=== PATIENT | male | born 1990 | race Caucasian/White ===

== ENCOUNTER 2020-08-01 18:26 | Emergency (ER) | payer OTHER ==
[~2020-08-01] VITALS: Ht 175.3 cm; Wt 85.1 kg
[2020-08-01 20:25] LABS: BILIRUBIN,URINE NEG (NEG); CLARITY,URINE CLEAR; COLOR,URINE YELLOW; GLUCOSE,URINE NEG (NEG); NITRITE,URINE NEG (NEG); UROBILINOGEN,URINE 0.2 mg/dL (0.2 mg/dL)
[2020-08-01 20:28] LABS: BACTERIA,URINE MOD /HPF (0-FEW); RBC,URINE 20-40 /HPF (0-2); SQUAMOUS EPITHELIAL CELL,UR OCC /LPF
--- NOTE | 2020-08-01 20:29 | RAD ---
CLINICAL HISTORY: Reason: left sided testicular pain, no injury / Spl. Instructions: / History: COMPARISON: None available. TECHNIQUE: Ultrasound images of the scrotum was performed with suarez-scale and color doppler. FINDINGS: Right testicle measures 4.4 x 2.9 x 2.5 cm. Left testicle measures 4.2 x 2.8 x 2.2 cm. Testicular microlithiasis noted. Testicular vascularity is symmetric and within normal limits. The epididymis is normal in appearance bilaterally. There is no hydrocele or varicocele. IMPRESSION: 1. No evidence for torsion. 2. Findings of testicular microlithiasis. Electronically signed by: Jai Dent MD (08/01/2020 8:27 PM) [facility]
[2020-08-01 20:30] LABS: AMORPHOUS SEDIMENT,UR PRESENT /HPF
--- NOTE | 2020-08-01 20:49 | PHYS DOC ---
Past History Past Medical History: Arthritis Additional Past Surgical Histo: BILAT FASCIATOMY LEGS Alcohol Use: Rarely General Adult EDM: Chief Complaint: TESTICULAR PAIN OR INJURY HPI: HPI: Patient is a 30-year-old male who presents with left-sided testicular pain. Patient states "I was just sitting there when all of a sudden I started having pain in my left testicle that radiated up into my abdomen and back". Patient states "I feel like my left testicle is higher up and looks like there is broken blood vessels". Patient denies injury. Denies pain with urination, frequency, penile discharge, fevers. Patient reports pain is worse with movement. And improves with sitting still. Denies taking anything prior to arrival for pain. Review of Systems: Review of Systems: Constitutional: Denies fever or chills Eyes: Denies change in visual acuity HENT: Denies nasal congestion or sore throat Respiratory: Denies cough or shortness of breath Cardiovascular: Denies chest pain or edema GI: Reports left-sided abdominal pain, denies nausea, vomiting, bloody stools or diarrhea : Denies dysuria Musculoskeletal: Reports back pain Integument: Denies rash Neurologic: Denies headache, focal weakness or sensory changes Endocrine: Denies polyuria or polydipsia Lymphatic: Denies swollen glands Psychiatric: Denies depression or anxiety Allergies: Allergies: Allergies Coded Allergies Type Severity Reaction Last Updated Verified Penicillins Allergy Intermediate 08/01/20 Yes oseltamivir Allergy Intermediate 08/01/20 Yes Physical Exam: PE: Constitutional: Well developed, well nourished, no acute distress, non-toxic appearance. [] HENT: Normocephalic, atraumatic, bilateral external ears normal, oropharynx moist, no oral exudates, nose normal. [] Eyes: PERRLA, EOMI, conjunctiva normal, no discharge. [] Neck: Normal range of motion, no tenderness, supple, no stridor. [] Cardiovascular:Heart rate regular rhythm, no murmur [] Lungs & Thorax: Bilateral breath sounds clear to auscultation [] Abdomen: Bowel sounds normal, soft, no tenderness, no masses, no pulsatile masses. [] Skin: Warm, dry, no erythema, no rash. [] Back: No tenderness, no CVA tenderness. [] Extremities: No tenderness, no cyanosis, no clubbing, ROM intact, no edema. [] Neurologic: Alert and oriented X 3, normal motor function, normal sensory function, no focal deficits noted. [] Psychologic: Affect normal, judgement normal, mood normal. [] Current Patient Data: Labs: Laboratory Tests Test 08/01/20 19:13 Urine Collection Type Unknown Urine Color Yellow Urine Clarity Clear Urine pH 7.5 Urine Specific [place] 1.020 Urine Protein Neg (NEG-TRACE) Urine Glucose (UA) Neg mg/dL (NEG) Urine Ketones (Stick) Neg mg/dL (NEG) Urine Blood Mod (NEG) Urine Nitrite Neg (NEG) Urine Bilirubin Neg (NEG) Urine Urobilinogen Dipstick 0.2 mg/dL (0.2 mg/dL) Urine Leukocyte Esterase Neg (NEG) Urine RBC 20-40 /HPF (0-2) Urine WBC 1-4 /HPF (0-4) Urine Squamous Epithelial Cells Occ /LPF Urine Amorphous Sediment Present /HPF Urine Bacteria Mod /HPF (0-FEW) Vital Signs: Vital Signs Date Time Temp Pulse Resp B/P (MAP) Pulse Ox O2 Delivery O2 Flow Rate FiO2 08/01/20 20:31 81 18 141/68 (92) 98 Room Air 08/01/20 18:45 99.7 EKG: EKG: [] Radiology/Procedures: Radiology/Procedures: []CLINICAL HISTORY: Reason: left sided testicular pain, no injury / Spl. Instructions: / History: COMPARISON: None available. TECHNIQUE: Ultrasound images of the scrotum was performed with suarez-scale and color doppler. FINDINGS: Right testicle measures 4.4 x 2.9 x 2.5 cm. Left testicle measures 4.2 x 2.8 x 2.2 cm. Testicular microlithiasis noted. Testicular vascularity is symmetric and within normal limits. The epididymis is normal in appearance bilaterally. There is no hydrocele or varicocele. IMPRESSION: 1. No evidence for torsion. 2. Findings of testicular microlithiasis. Electronically signed by: Jai Dent MD (08/01/2020 8:27 PM) [facility] without contrast dated 08/01/2020. No comparison available. CLINICAL INDICATION: Left-sided pain. TECHNIQUE: Contiguous axial imaging the abdomen pelvis performed without the administration of IV or oral contrast. One or more of the following individualized dose reduction techniques were utilized for this examination: 1. Automated exposure control 2. Adjustment of the mA and/or kV according to patient size 3. Use of iterative reconstruction technique FINDINGS: Limited images of the lung bases are clear. Heart size is within normal limits. No pleural or pericardial effusion. Solid abdominal viscera not well evaluated in the absence of contrast material. No apparent attenuation abnormality of the liver or spleen. Pancreas, adrenal glands, gallbladder unremarkable. There is a 3 mm calcific stone at the left UPJ. Mild left-sided pelvocaliectasis. 2 mm stone at the lower pole left kidney. There are couple of punctate calcific stones at the lower pole right kidney. No right ureteral stone or right hydronephrosis. Unopacified GI tract normal in caliber and contour. No focal bowel wall thickening. No inflammatory stranding in the mesentery. Appendix normal in caliber. No ascites or lymphadenopathy. Abdominal aorta normal in caliber. Images of pelvis show nondistended urinary bladder. Prostate gland normal in size. No free fluid or pelvic lymphadenopathy. Bone windows show no acute findings. Multilevel spondylosis. IMPRESSION: 1. There is a 3 mm calcific stone at the left UPJ with mild obstructive uropathy. 2. Bilateral nephrolithiasis. Electronically signed by: Dusty Michel MD (08/01/2020 9:35 PM) [facility] Heart Score: C/O Chest Pain: No Risk Factors: Risk Factors: DM, Current or recent (<one month) smoker, HTN, HLP, family history of CAD, obesity. Risk Scores: Score 0 - 3: 2.5% MACE over next 6 weeks - Discharge Home Score 4 - 6: 20.3% MACE over next 6 weeks - Admit for Clinical Observation Score 7 - 10: 72.7% MACE over next 6 weeks - Early Invasive Strategies Course & Med Decision Making: Course & Med Decision Making Pertinent Labs and Imaging studies reviewed. (See chart for details) [] 30-year-old male who presents with left-sided testicular pain that radiated into abdomen and back. Pain is worse with standing. Patient denies taking anything for pain prior to arrival. Patient denies urinary symptoms. I ordered a testicular ultrasound to rule out torsion which was negative. Patient given Toradol for discomfort. Patient was denying needing any medication for nausea. CBC is unremarkable.UA was positive for RBCs. CT of abdomen and pelvis shows 3 mm calcific stone at the left UPJ with mild obstructive uropathy. Discussed CT results with patient. Patient given pain medication and Flomax prior to discharge. Patient given prescription for 5/325 hydrocodone, Flomax, Zofran. Explained to patient they will need to call urology in the morning to make a follow-up appointment. Patient states that they understand discharge instructions and will follow up with urology. Patient's pain is controlled at this time. Denying nausea. Dragon Disclaimer: Kristen Disclaimer: This electronic medical record was generated, in whole or in part, using a voice recognition dictation system. Departure Departure: Impression: Primary Impression: Kidney stone Disposition: HOME / SELF CARE / HOMELESS Condition: STABLE Referrals: PCP,KAUSHIK (PCP) Patient Instructions: Kidney Stones, [id number] Additional Instructions: You were seen in the emergency room for left testicular pain. CT of your abdomen shows a 3 mm left, obstructive stone. I am going to give you hydrocodone, Flomax, Zofran for home for pain and nausea. Can also take ibuprofen for breakthrough pain. I am providing you the phone number for urology. Please call them for a follow-up appointment. Please return emergency room if you have worsening symptoms or concerns. EMERGENCY DEPARTMENT GENERAL DISCHARGE INSTRUCTIONS Thank you for coming to [facility] (ED) today and trusting us with you care. We trust that you had a positivie experience in our Emergency Department. If you wish to speak to the department management, you may call the director at [phone]. YOUR FOLLOW UP INSTRUCTIONS ARE FOLLOWS: 1. Do you have a private Doctor? If you do not have a private doctor, please ask for a resource list of physicians or clinics that may be able to assist you with follow up care. 2. The Emergency Physician has interpreted your x-rays. The X-Ray specialist will also review them. If there is a change in the findings, you will be notified in 48 hours when at all possible. 3. A lab test or culture has been done, your results will be reviewed and you will be notified if you need a change in treatment. ADDITIONAL INSTRUCTIONS AND INFORMATION: 1. Your care today has been supervised by a physician who is specially trained in emergency care. Many problems require more than one evaluation for a complete diagnosis and treatment. We recommend that you schedule your follow up appointment as recommended to ensure complete treatment of you illness or injury. If you are unable to obtain follow up care and continue to have a problem, or if your condition worsens, we recommend that you return to the ED. 2. We are not able to safely determine your condition over the phone nor are we able to give sound medical advice over the phone. For these safety reasons, if you call for medical advice we will ask you to come to the ED for further evaluation. 3. If you have any questions regarding these discharge instructions please call the ED at [phone]. SAFETY INFORMATION: In the interest of safety, wellness, and injury prevention; we encourage you to wear your sealbelt, if you smoke; quite smoking, and we encourage family to use a protective helmet for bicycling and other sporting events that present an increased risk for head injury. IF YOUR SYMPTOMS WORSEN OR NEW SYMPTOMS DEVELOP, OR YOU HAVE CONCERNS ABOUT YOUR CONDITION; OR IF YOUR CONDITION WORSENS WHILE YOU ARE WAITING FOR YOUR FOLLOW UP APPOINTMENT; EITHER CONTACT YOUR PRIMARY CARE DOCTOR, THE PHYSICIAN WHOSE NAME AND NUMBER YOU WERE GIVEN, OR RETURN TO THE ED IMMEDIATELY. Scripts Ondansetron Hcl (ZOFRAN) 4 Mg Tablet 4 MG PO TID PRN PRN for NAUSEA for 7 Days, #9 TAB Prov: ALVARADO ESPARZA APRN 08/01/20 Hydrocodone Bit/Acetaminophen (HYDROCODONE-APAP 5-325 ) 1 Each Tablet 1 TAB PO PRN Q6HRS PRN for PAIN for 3 Days, #12 TAB 0 Refills Prov: ALVARADO ESPARZA APRN 08/01/20 Tamsulosin Hcl (FLOMAX) 0.4 Mg Cap.er.24h 0.4 MG PO DAILY for KIDNEY STONE for 7 Days, #7 CAP.SR Prov: ALVARADO ESPARZA APRN 08/01/20 ALVARADO ESPARZA APRN Aug 01, 2020 20:49
[2020-08-01 21:28] LABS: BASO % 1 % (0-3); EOS # 0.2 x10^3/uL (0.0-0.7); EOS % 2 % (0-3); HEMATOCRIT 46.5 % (39.0-53.0); HEMOGLOBIN 15.5 g/dL (13.0-17.5); LYMPH # 2.4 x10^3/uL (1.0-4.8); LYMPH % 25 % (24-48); MEAN CORPUSCULAR HEMOGLOBIN 28 pg (25-35); MEAN CORPUSCULAR HGB CONC 33 g/dL (31-37); MEAN CORPUSCULAR VOLUME 84 fL (79-100); MONO # 0.7 x10^3/uL (0.0-1.1); MONO % 7 % (0-9); NEUT # 6.6 x10^3uL (1.8-7.7); NEUT % 66 % (31-73); PLATELET COUNT 179 x10^3/uL (140-400); RED BLOOD COUNT 5.55 x10^6/uL (4.30-5.70); RED CELL DISTRIBUTION WIDTH 13.3 % (11.5-14.5)
[2020-08-01] MEDS ORDERED: KETOROLAC 15 MG/ML VIAL. IVP ONE (21:30)
[2020-08-01] MEDS ORDERED: IV NORMAL SALINE 1,000ML 1,000 ML IV ONE (21:30)
--- NOTE | 2020-08-01 21:38 | RAD ---
CT abdomen pelvis without contrast dated 08/01/2020. No comparison available. CLINICAL INDICATION: Left-sided pain. TECHNIQUE: Contiguous axial imaging the abdomen pelvis performed without the administration of IV or oral contra st. One or more of the following individualized dose reduction techniques were utilized for this examinat ion: 1. Automated exposure control 2. Adjustment of the mA and/or kV according to patient size 3. Use of iterative reconstruction technique FINDINGS: Limited images of the lung bases are clear. Heart size is within normal limits. No pleural or pericar dial effusion. Solid abdominal viscera not well evaluated in the absence of contrast material. No apparent attenuati on abnormality of the liver or spleen. Pancreas, adrenal glands, gallbladder unremarkable. There is a 3 mm calcific stone at the left UPJ. Mild left-sided pelvocaliectasis. 2 mm stone at the l ower pole left kidney. There are couple of punctate calcific stones at the lower pole right kidney. N o right ureteral stone or right hydronephrosis. Unopacified GI tract normal in caliber and contour. No focal bowel wall thickening. No inflammatory s tranding in the mesentery. Appendix normal in caliber. No ascites or lymphadenopathy. Abdominal aorta normal in caliber. Images of pelvis show nondistended urinary bladder. Prostate gland normal in size. No free fluid or p elvic lymphadenopathy. Bone windows show no acute findings. Multilevel spondylosis. IMPRESSION: 1. There is a 3 mm calcific stone at the left UPJ with mild obstructive uropathy. 2. Bilateral nephrolithiasis. Electronically signed by: Dusty Michel MD (08/01/2020 9:35 PM) [facility]
[2020-08-01 21:47] LABS: CALCIUM 9.1 mg/dL (8.5-10.1); CREATININE 1.5 mg/dL (0.7-1.3); GFR 54.2; POTASSIUM 3.9 mmol/L (3.5-5.1)
[2020-08-01 21:53] LABS: ALBUMIN 4.1 g/dL (3.4-5.0); ALBUMIN/GLOBULIN RATIO 1.3 (1.0-1.7); TOTAL BILIRUBIN 0.2 mg/dL (0.2-1.0); TOTAL PROTEIN 7.3 g/dL (6.4-8.2)
[2020-08-01] MEDS ORDERED: TAMS0.4C97 PO (22:09)
[2020-08-01] MEDS ORDERED: ONDA4TAB7 PO (22:10)
[2020-08-01] MEDS ORDERED: HYDR-2155 PO (22:10)
[2020-08-01] MEDS ORDERED: TAMSULOSIN 0.4 MG CAP.ER.24H. PO ONE (22:30)
[2020-08-01] MEDS ORDERED: HYDROcodone/APAP 5/325MG 1 TAB TABLET PO ONE (22:30)
[2020-08-01 22:31] VITALS: BP 122/6
== END 2020-08-01 22:32 | disposition home or self-care (01) ==
LOC: ER 18:26
DX: N20.0 Calculus of kidney (principal); N50.812 Left testicular pain; M19.90 Unspecified osteoarthritis, unspecified site; Z88.0 Allergy status to penicillin; Z88.8 Allergy status to other drugs, medicaments and biological substances
CPT/HCPCS: 36415; 74176; 76870; 80053; 81001; 85025; 87086; 96361; 96374; 99285; J1885; J7030

== ENCOUNTER 2020-08-08 17:55 | Emergency (ER) | payer OTHER ==
[~2020-08-08] VITALS: Ht 175.3 cm; Wt 86.0 kg
[~2020-08-08 17:55] MED LIST: HYDR-2155 PO; ONDA4TAB7 PO; TAMS0.4C97 PO
[2020-08-08 18:10] VITALS: BP 141/75
--- NOTE | 2020-08-08 18:30 | PHYS DOC ---
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 Patient n ormally follows at [facility]. Does have a follow-up with [facility] tomorrow at 1020 hrs. Patient seen previously here in our emergency department for left flank pain on 620. At that time he was have radiation left flank to left testicular. Patient was found to have a 3 mm calcified stone at left UPJ with mild obstructive uropathy. Patient denies any previous history of kidney stone. Moe es any previous history of urinary retention. Patient stated that pain was severe and felt stabbing. But currently now problem is urinary retention. Patient only able to urinate small increments of urine approximately 30 cc. Patient's bladder is somewhat distended. Patient denies any trauma. Patient denies history of contact. Patient denies any immunosuppression. No recent travel outside the [place] area. Patient has significant past medical history of leg fasciotomies due to injury. Patient states he is normally healthy. Review of Systems: Review of Systems: Constitutional: Denies fever or chills Eyes: Denies change in visual acuity HENT: Denies nasal congestion or sore throat Respiratory: Denies cough or shortness of breath Cardiovascular: Denies chest pain or edema GI: Complains of right flank abdominal pain, nausea, vomiting,. Denies bloody stools or diarrhea : Complains of dysuria and inability to urinate Musculoskeletal: Left flank back pain complaints Integument: Denies rash Neurologic: Denies headache, focal weakness or sensory changes Endocrine: Denies polyuria or polydipsia Lymphatic: Denies swollen glands Psychiatric: Denies depression or anxiety Family History: Family History: Noncontributory to presentation Current Medications: Current Meds: See nursing for home meds Allergies: Allergies: Allergies Coded Allergies Type Severity Reaction Last Updated Verified Penicillins Allergy Intermediate 08/01/20 Yes oseltamivir Allergy Intermediate 08/01/20 Yes Physical Exam: PE: Constitutional: Well developed, well nourished, in acute distress, non-toxic appearance. [] HENT: Normocephalic, atraumatic, bilateral external ears normal, oropharynx moist, no oral exudates, nose normal. [] Eyes: PERRLA, EOMI, conjunctiva normal, no discharge. [] Neck: Normal range of motion, no tenderness, supple, no stridor. [] Cardiovascular:Heart rate regular rhythm, no murmur [] Lungs & Thorax: Bilateral breath sounds clear to auscultation [] Abdomen: Bowel sounds decreased soft, left flank tenderness, no masses, no pulsatile masses. Distended bladder Skin: Warm, dry, no erythema, no rash. Multiple tattoos. Back: No tenderness, left flank CVA tenderness. [] Extremities: No tenderness, no cyanosis, no clubbing, ROM intact, no edema. No psoas sign. Neurologic: Alert and oriented X 3, normal motor function, normal sensory function, no focal deficits noted. [] Psychologic: Affect anxious, judgement normal, mood normal. [] EKG: EKG: [] Radiology/Procedures: Radiology/Procedures: [] Heart Score: C/O Chest Pain: N/A Risk Factors: Risk Factors: DM, Current or recent (<one month) smoker, HTN, HLP, family history of CAD, obesity. Risk Scores: Score 0 - 3: 2.5% MACE over next 6 weeks - Discharge Home Score 4 - 6: 20.3% MACE over next 6 weeks - Admit for Clinical Observation Score 7 - 10: 72.7% MACE over next 6 weeks - Early Invasive Strategies Course & Med Decision Making: Course & Med Decision Making Pertinent Labs and Imaging studies reviewed. (See chart for details) Patient had a Salazar placed for urinary retention. To keep follow-up with urology. Take Tylenol and ibuprofen for pain. May take [id number] Pyridium for Salazar discomfort. Patient return if any concerns. Impression: 1.Hx.of Lt. UVJ 3mm stone with mild obstructive uropathy 2. Complaints Bladder Out Let Obstruction [] Dragon Disclaimer: Dragon Disclaimer: This electronic medical record was generated, in whole or in part, using a voice recognition dictation system. Departure Departure: Referrals: PCP,NO (PCP) Scripts Tamsulosin Hcl (FLOMAX) 0.4 Mg Cap.er.24h 0.4 MG PO DAILY for renal stone, and urinary reten for 30 Days, #30 CAP.SR Prov: FLORES MEADOWS MD 08/08/20 Kristen Disclaimer This chart was dictated in whole or in part using Voice Recognition software in a busy, high-work load, and often noisy Emergency Department environment. It may contain unintended and wholly unrecognized errors or omissions. Dragon Disclaimer This chart was dictated in whole or in part using Voice Recognition software in a busy, high-work load, and often noisy Emergency Department environment. It may contain unintended and wholly unrecognized errors or omissions. FLORES MEADOWS MD Aug 08, 2020 18:30
[2020-08-08] MEDS ORDERED: LIDOCAINE 2% JELLY 10ML IN APPLICATOR. MM ONE (19:00)
[2020-08-08 19:36] LABS: CLARITY,URINE CLEAR; COLOR,URINE YELLOW
[2020-08-08 19:37] LABS: BILIRUBIN,URINE NEG (NEG); GLUCOSE,URINE NEG (NEG); NITRITE,URINE NEG (NEG); UROBILINOGEN,URINE 0.2 mg/dL (0.2 mg/dL)
[2020-08-08 19:47] LABS: BACTERIA,URINE FEW /HPF (0-FEW); SQUAMOUS EPITHELIAL CELL,UR OCC /LPF; WBC,URINE OCC /HPF (0-4)
[2020-08-08] MEDS ORDERED: TAMS0.4C97 PO (19:59)
[2020-08-08] MEDS ORDERED: TAMSULOSIN 0.4 MG CAP.ER.24H. PO ONE (20:00)
== END 2020-08-08 20:45 | disposition home or self-care (01) ==
LOC: ER 17:55
DX: N32.0 Bladder-neck obstruction (principal); N13.8 Other obstructive and reflux uropathy; M19.90 Unspecified osteoarthritis, unspecified site; Z87.442 Personal history of urinary calculi; Z88.0 Allergy status to penicillin; Z88.8 Allergy status to other drugs, medicaments and biological substances
CPT/HCPCS: 51702; 81001; 99284

== ENCOUNTER 2020-08-08 22:50 | Emergency (ER) | payer OTHER ==
[~2020-08-08] VITALS: Ht 175.3 cm; Wt 84.1 kg
--- NOTE | 2020-08-09 00:38 | PHYS DOC ---
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 Patient seen earlier and was diagnosed with a UVJ kidney stone and urinary retention. Pt. has hx UVJ stone and urinary bladder retention. Patient does have referral to [facility] from [place], but is not scheduled until next week. Patient seen earlier in the emergency department and a Mario was placed for the urinary retention or obstruction. Patient however returns because he finds the Mario too irritating. Patient currently demanding removal of Mario in spite of history of bladder obstruction. Patient is up-to-date with vaccinations. No recent travel. No specific ill contacts. No history of STDs. Review of Systems: Review of Systems: Constitutional: Denies fever or chills Eyes: Denies change in visual acuity HENT: Denies nasal congestion or sore throat Respiratory: Denies cough or shortness of breath Cardiovascular: Denies chest pain or edema GI: Denies abdominal pain, nausea, vomiting, bloody stools or diarrhea : Complains of irritation from Mario placement Musculoskeletal: Denies back pain or joint pain Integument: Denies rash Neurologic: Denies headache, focal weakness or sensory changes Endocrine: Denies polyuria or polydipsia Lymphatic: Denies swollen glands Psychiatric: Denies depression or anxiety Family History: Family History: Noncontributory to presentation Current Medications: Current Meds: See nursing for home meds Allergies: Allergies: Allergies Coded Allergies Type Severity Reaction Last Updated Verified Penicillins Allergy Intermediate 08/01/20 Yes oseltamivir Allergy Intermediate 08/01/20 Yes Physical Exam: PE: Constitutional: Well developed, well nourished, in acute distress, non-toxic appearance. [] HENT: Normocephalic, atraumatic, bilateral external ears normal, oropharynx moist, no oral exudates, nose normal. [] Eyes: PERRLA, EOMI, conjunctiva normal, no discharge. [] Neck: Normal range of motion, no tenderness, supple, no stridor. [] Cardiovascular:Heart rate regular rhythm, no murmur [] Lungs & Thorax: Bilateral breath sounds clear to auscultation [] Abdomen: Bowel sounds decreased, soft, left flank and lower abdomen tenderness, no masses, no pulsatile masses. Complains of severe irritation from Mario placement. Skin: Warm, dry, no erythema, no rash. Old with tattoos Back: No tenderness, left CVA tenderness. [] Extremities: No tenderness, no cyanosis, no clubbing, ROM intact, no edema. [] Neurologic: Alert and oriented X 3, normal motor function, normal sensory function, no focal deficits noted. [] Psychologic: Affect anxious, judgement normal, mood normal. [] EKG: EKG: [] Radiology/Procedures: Radiology/Procedures: [] Heart Score: C/O Chest Pain: N/A Risk Factors: Risk Factors: DM, Current or recent (<one month) smoker, HTN, HLP, family history of CAD, obesity. Risk Scores: Score 0 - 3: 2.5% MACE over next 6 weeks - Discharge Home Score 4 - 6: 20.3% MACE over next 6 weeks - Admit for Clinical Observation Score 7 - 10: 72.7% MACE over next 6 weeks - Early Invasive Strategies Course & Med Decision Making: Course & Med Decision Making Pertinent Labs and Imaging studies reviewed. (See chart for details) Mario was removed per patient's request. Patient was given some Pyridium. Patient did receive some Toradol. Patient to keep follow-up at as scheduled. If further problems must present to for his urology follow-up. Return if any concerns. Take meds as previous directed. Impression: 1. History of a UVJ stone left 2. Urinary retention [] Dragon Disclaimer: Dragon Disclaimer: This electronic medical record was generated, in whole or in part, using a voice recognition dictation system. Departure Departure: Referrals: PCP,NO (PCP) FLORES MEADOWS MD Aug 09, 2020 00:38
[2020-08-09] MEDS ORDERED: KETOROLAC 60 MG/2 ML VIAL. IM ONE (00:45)
[2020-08-09] MEDS ORDERED: PHENAZOPYRIDINE 200 MG TABLET. PO ONE (00:45)
[2020-08-09 01:30] VITALS: BP 118/75
== END 2020-08-09 01:40 | disposition home or self-care (01) ==
LOC: ER 22:50
DX: R33.9 Retention of urine, unspecified (principal); M19.90 Unspecified osteoarthritis, unspecified site; Z87.442 Personal history of urinary calculi; Z88.0 Allergy status to penicillin; Z88.8 Allergy status to other drugs, medicaments and biological substances
CPT/HCPCS: 96372; 99283; J1885

== ENCOUNTER 2020-08-12 10:32 | Emergency (ER) | payer OTHER ==
[~2020-08-12] VITALS: Ht 175.3 cm; Wt 84.1 kg
[2020-08-12] MEDS: ONDANSETRON PF 4 MG/2 ML VIAL. IVP ONE (12:30)
[2020-08-12 12:32] LABS: BILIRUBIN,URINE NEG (NEG); CLARITY,URINE CLEAR; COLOR,URINE YELLOW; GLUCOSE,URINE NEG (NEG); NITRITE,URINE NEG (NEG); UROBILINOGEN,URINE 0.2 mg/dL (0.2 mg/dL)
[2020-08-12 12:35] LABS: BACTERIA,URINE 0 /HPF (0-FEW); SQUAMOUS EPITHELIAL CELL,UR OCC /LPF
[2020-08-12 12:36] LABS: HYALINE CASTS, URINE OCC /HPF
[2020-08-12] MEDS: IV NORMAL SALINE 1,000ML 1,000 ML IV ONE (12:42)
[2020-08-12 13:02] LABS: BASO % 1 % (0-3); EOS # 0.2 x10^3/uL (0.0-0.7); EOS % 3 % (0-3); HEMATOCRIT 45.7 % (39.0-53.0); HEMOGLOBIN 15.2 g/dL (13.0-17.5); LYMPH # 2.2 x10^3/uL (1.0-4.8); LYMPH % 33 % (24-48); MEAN CORPUSCULAR HEMOGLOBIN 28 pg (25-35); MEAN CORPUSCULAR HGB CONC 33 g/dL (31-37); MEAN CORPUSCULAR VOLUME 85 fL (79-100); MONO # 0.4 x10^3/uL (0.0-1.1); MONO % 6 % (0-9); NEUT # 3.8 x10^3uL (1.8-7.7); NEUT % 57 % (31-73); PLATELET COUNT 156 x10^3/uL (140-400); WHITE BLOOD COUNT 6.7 x10^3/uL (4.0-11.0)
[2020-08-12 13:06] LABS: CALCIUM 8.9 mg/dL (8.5-10.1); CREATININE 1.4 mg/dL (0.7-1.3); GFR 58.7; POTASSIUM 4.2 mmol/L (3.5-5.1)
[2020-08-12 14:12] VITALS: BP 120/71
[2020-08-12] MEDS: KETOROLAC 30 MG/ML VIAL. IVP ONE (14:18)
[2020-08-12] MEDS ORDERED: HYDR-2759 PO (14:26)
--- NOTE | 2020-08-12 14:32 | PHYS DOC ---
Past History Past Medical History: Arthritis, Kidney Stones (LAXMI REESE APRN) Past Surgical History: No Surgical History Additional Past Surgical Histo: BILAT FASCIATOMY LEGS (LAXMI REESE APRN) Alcohol Use: None (LAXMI REESE APRN) Adult General Chief Complaint Chief Complaint: FLANK PAIN HPI HPI Patient is a 30-year-old male who presents to the ER today for left flank pain. Patient was diagnosed in this ER on August 01 with a 3 mm kidney stone and sent home with Judith Pro Norco and told to follow-up with urology as soon as possible. Patient was seen in this ER on August 08 for urinary retention and a Salazar catheter was placed and patient was given Pyridium. That same day patient return to the ER to have his Salazar catheter removed as it was irritating him. Patient reports that his left flank pain is intermittent and he rates it 8 out of 10. He has not been taking anything for pain at home. He is also reporting nausea associated with the pain and urinary frequency. He denies fevers, difficulty urinating/urinary retention, abdominal pain, vomiting, diarrhea. (LAXMI REESE APRN) Review of Systems Review of Systems 14 body systems of the review of systems have been reviewed. See HPI for pertinent positive and negative responses, otherwise all other systems are negative, nonpertinent or noncontributory All other systems were reviewed and found to be within normal limits, except as documented in this note. (LAXMI REESE APRN) Current Medications Current Medications Current Medications Medications (Trade) Dose Ordered Sig/Toby Start Time Stop Time Status Last Admin Dose Admin Fentanyl Citrate (Fentanyl 2ml Vial) 50 mcg 1X ONCE 08/12/20 12:30 08/12/20 12:38 DC 08/12/20 12:43 50 MCG Ketorolac Tromethamine (Toradol 30mg Vial) 30 mg 1X ONCE 08/12/20 14:00 08/12/20 14:02 DC 08/12/20 14:18 30 MG Ondansetron HCl (Zofran) 4 mg 1X ONCE 08/12/20 12:30 08/12/20 12:38 DC Sodium Chloride 1,000 ml @ 1,000 mls/hr 1X ONCE 08/12/20 12:30 08/12/20 13:29 DC 08/12/20 12:42 1,000 MLS/HR (LAXMI REESE APRN) Allergies Allergies Allergies Coded Allergies Type Severity Reaction Last Updated Verified Penicillins Allergy Intermediate 08/01/20 Yes oseltamivir Allergy Intermediate 08/01/20 Yes (LAXMI REESE APRN) Physical Exam Physical Exam Constitutional: Well developed, well nourished, no acute distress, non-toxic appearance. [] HENT: Normocephalic, atraumatic, bilateral external ears normal, nose normal. [] Eyes: PERRL, conjunctiva normal, no discharge. [] Neck: Normal range of motion, no stridor. [] Cardiovascular:Heart rate regular rhythm, no murmur [] Lungs & Thorax: Bilateral breath sounds clear to auscultation [] Abdomen: Bowel sounds normal, soft, no tenderness, no masses, no pulsatile masses. [] Skin: Warm, dry, no erythema, no rash. [] Back: No tenderness, positive left CVA tenderness. [] Extremities: No tenderness, no cyanosis, no clubbing, ROM intact, no edema. [] Neurologic: Alert and oriented X 3, normal motor function, normal sensory function, no focal deficits noted. [] Psychologic: Affect normal, judgement normal, mood normal. [] (LAXMI REESE APRN) Current Patient Data Vital Signs Vital Signs Date Time Temp Pulse Resp B/P (MAP) Pulse Ox O2 Delivery O2 Flow Rate FiO2 08/12/20 14:12 78 120/71 (87) 96 Room Air 08/12/20 12:43 16 08/12/20 10:59 98.4 Lab Results Laboratory Tests Test 08/12/20 12:02 08/12/20 12:38 Urine Collection Type Unknown Urine Color Yellow Urine Clarity Clear Urine pH 6.0 Urine Specific [place] 1.025 Urine Protein Neg Urine Glucose (UA) Neg mg/dL Urine Ketones (Stick) Neg mg/dL Urine Blood Mod Urine Nitrite Neg Urine Bilirubin Neg Urine Urobilinogen Dipstick 0.2 mg/dL Urine Leukocyte Esterase Neg Urine RBC 11-20 /HPF Urine WBC 1-4 /HPF Urine Squamous Epithelial Cells Occ /LPF Urine Bacteria 0 /HPF Urine Hyaline Casts Occ /HPF Urine Mucus Slight /LPF White Blood Count 6.7 x10^3/uL Red Blood Count 5.40 x10^6/uL Hemoglobin 15.2 g/dL Hematocrit 45.7 % Mean Corpuscular Volume 85 fL Mean Corpuscular Hemoglobin 28 pg Mean Corpuscular Hemoglobin Concent 33 g/dL Red Cell Distribution Width 13.0 % Platelet Count 156 x10^3/uL Neutrophils (%) (Auto) 57 % Lymphocytes (%) (Auto) 33 % Monocytes (%) (Auto) 6 % Eosinophils (%) (Auto) 3 % Basophils (%) (Auto) 1 % Neutrophils # (Auto) 3.8 x10^3uL Lymphocytes # (Auto) 2.2 x10^3/uL Monocytes # (Auto) 0.4 x10^3/uL Eosinophils # (Auto) 0.2 x10^3/uL Basophils # (Auto) 0.0 x10^3/uL Sodium Level 143 mmol/L Potassium Level 4.2 mmol/L Chloride Level 107 mmol/L Carbon Dioxide Level 30 mmol/L Anion Gap 6 Blood Urea Nitrogen 18 mg/dL Creatinine 1.4 mg/dL Estimated GFR (Cockcroft-Gault) 58.7 Glucose Level 107 mg/dL Calcium Level 8.9 mg/dL Current Medications Medications (Trade) Dose Ordered Sig/Toby Route PRN Reason Start Time Stop Time Status Last Admin Dose Admin Sodium Chloride 1,000 ml @ 1,000 mls/hr 1X ONCE IV 08/12/20 12:30 08/12/20 13:29 DC 08/12/20 12:42 Ondansetron HCl (Zofran) 4 mg 1X ONCE IVP 08/12/20 12:30 08/12/20 12:38 DC Fentanyl Citrate (Fentanyl 2ml Vial) 50 mcg 1X ONCE IVP 08/12/20 12:30 08/12/20 12:38 DC 08/12/20 12:43 Ketorolac Tromethamine (Toradol 30mg Vial) 30 mg 1X ONCE IVP 08/12/20 14:00 08/12/20 14:02 DC 08/12/20 14:18 Laboratory Tests Test 08/12/20 12:02 08/12/20 12:38 Urine Collection Type Unknown Urine Color Yellow Urine Clarity Clear Urine pH 6.0 Urine Specific [place] 1.025 Urine Protein Neg (NEG-TRACE) Urine Glucose (UA) Neg mg/dL (NEG) Urine Ketones (Stick) Neg mg/dL (NEG) Urine Blood Mod (NEG) Urine Nitrite Neg (NEG) Urine Bilirubin Neg (NEG) Urine Urobilinogen Dipstick 0.2 mg/dL (0.2 mg/dL) Urine Leukocyte Esterase Neg (NEG) Urine RBC 11-20 /HPF (0-2) Urine WBC 1-4 /HPF (0-4) Urine Squamous Epithelial Cells Occ /LPF Urine Bacteria 0 /HPF (0-FEW) Urine Hyaline Casts Occ /HPF Urine Mucus Slight /LPF White Blood Count 6.7 x10^3/uL (4.0-11.0) Red Blood Count 5.40 x10^6/uL (4.30-5.70) Hemoglobin 15.2 g/dL (13.0-17.5) Hematocrit 45.7 % (39.0-53.0) Mean Corpuscular Volume 85 fL (79-100) Mean Corpuscular Hemoglobin 28 pg (25-35) Mean Corpuscular Hemoglobin Concent 33 g/dL (31-37) Red Cell Distribution Width 13.0 % (11.5-14.5) Platelet Count 156 x10^3/uL (140-400) Neutrophils (%) (Auto) 57 % (31-73) Lymphocytes (%) (Auto) 33 % (24-48) Monocytes (%) (Auto) 6 % (0-9) Eosinophils (%) (Auto) 3 % (0-3) Basophils (%) (Auto) 1 % (0-3) Neutrophils # (Auto) 3.8 x10^3uL (1.8-7.7) Lymphocytes # (Auto) 2.2 x10^3/uL (1.0-4.8) Monocytes # (Auto) 0.4 x10^3/uL (0.0-1.1) Eosinophils # (Auto) 0.2 x10^3/uL (0.0-0.7) Basophils # (Auto) 0.0 x10^3/uL (0.0-0.2) Sodium Level 143 mmol/L (136-145) Potassium Level 4.2 mmol/L (3.5-5.1) Chloride Level 107 mmol/L (98-107) Carbon Dioxide Level 30 mmol/L (21-32) Anion Gap 6 (6-14) Blood Urea Nitrogen 18 mg/dL (8-26) Creatinine 1.4 mg/dL (0.7-1.3) H Estimated GFR (Cockcroft-Gault) 58.7 Glucose Level 107 mg/dL (70-99) H Calcium Level 8.9 mg/dL (8.5-10.1) (LAXMI REESE APRN) EKG EKG [] (LAXMI REESE APRN) Radiology/Procedures Radiology/Procedures [] (LAXMI REESE APRN) Heart Score C/O Chest Pain: No Risk Factors: Risk Factors: DM, Current or recent (<one month) smoker, HTN, HLP, family history of CAD, obesity. Risk Scores: Risk Factors: DM, Current or recent (<one month) smoker, HTN, HLP, family history of CAD, obesity. (LAXMI REESE APRN) Course & Med Decision Making Course & Med Decision Making Pertinent Labs and Imaging studies reviewed. (See chart for details) Patient is a 30-year-old male being seen in the ER today for left flank pain after being diagnosed with a 3 mm stone. Labs were mostly unremarkable, his creatinine was 1.4 which is decreased from his previous visit. There was moderate blood in his urine but no bacteria or leukocyte. Patient was treated with 1 L of normal saline, nausea medication, and pain medication. The need to CT the patient again was discussed with the patient and it was declined. Patient initially could not get in with urology for a month but while in the ER was able to make an appointment with a urologist in 6 days. Patient was discharged home with pain medication and was told to continue his previously prescribed medications as directed, patient agreeable to care plan. Patient's case was discussed with supervising (LAXMI REESE APRN) Course & Med Decision Making I oversaw on the above date of service of this patient. This patient was evaluated, examined, treated, and dispositioned from the emergency department by the mid-level practitioner. I reviewed case with PERFORMANCE MANAGER and directed care while in ER prior to departure. I reviewed note and agree to findings, plan of care, and disposition as stated. Electronically signed, Eloy Rosen DO (ELOY ROSEN DO) Kristen Disclaimer Dragon Disclaimer This electronic medical record was generated, in whole or in part, using a voice recognition dictation system. (LAXMI REESE APRN) Departure Departure: Impression: Primary Impression: Flank pain Additional Impression: Kidney stone Disposition: HOME / SELF CARE / HOMELESS Condition: STABLE Referrals: PCP,NO (PCP) Patient Instructions: Kidney Stones Additional Instructions: Thank you for choosing [facility] and allowing me to participate in your care. You were seen here today for left-sided flank pain after being diagnosed with a kidney stone previously. Your work-up in the ER today did not show any decreased kidney function or any signs of urinary tract infection. There was some blood in your urine which correlates with positive kidney stone. We discussed the need of an additional CT but was decided to forego a CT scan at this time. Please follow up with your primary care provider tomorrow regarding your ER visit. As we discussed, you need to follow-up with urology as soon as possible, please make sure that you keep your doctors appointment with the urologist on Sunday. If your symptoms worsen or you develop worsening of your pain, nausea, vomiting, fevers, chills, body pain, abdominal pain, increased blood in your urine, difficulty urinating, please return. EMERGENCY DEPARTMENT GENERAL DISCHARGE INSTRUCTIONS Thank you for coming to [facility] (ED) today and trusting us with you care. We trust that you had a positivie experience in our Emergency Department. If you wish to speak to the department management, you may call the director at [phone]. YOUR FOLLOW UP INSTRUCTIONS ARE FOLLOWS: 1. Do you have a private Doctor? If you do not have a private doctor, please ask for a resource list of physicians or clinics that may be able to assist you with follow up care. 2. The Emergency Physician has interpreted your x-rays. The X-Ray specialist will also review them. If there is a change in the findings, you will be notified in 48 hours when at all possible. 3. A lab test or culture has been done, your results will be reviewed and you will be notified if you need a change in treatment. ADDITIONAL INSTRUCTIONS AND INFORMATION: 1. Your care today has been supervised by a physician who is specially trained in emergency care. Many problems require more than one evaluation for a complete diagnosis and treatment. We recommend that you schedule your follow up appointment as recommended to ensure complete treatment of you illness or injury. If you are unable to obtain follow up care and continue to have a problem, or if your condition worsens, we recommend that you return to the ED. 2. We are not able to safely determine your condition over the phone nor are we able to give sound medical advice over the phone. For these safety reasons, if you call for medical advice we will ask you to come to the ED for further evaluation. 3. If you have any questions regarding these discharge instructions please call the ED at [phone]. SAFETY INFORMATION: In the interest of safety, wellness, and injury prevention; we encourage you to wear your sealbelt, if you smoke; quite smoking, and we encourage family to use a protective helmet for bicycling and other sporting events that present an increased risk for head injury. IF YOUR SYMPTOMS WORSEN OR NEW SYMPTOMS DEVELOP, OR YOU HAVE CONCERNS ABOUT YOUR CONDITION; OR IF YOUR CONDITION WORSENS WHILE YOU ARE WAITING FOR YOUR FOLLOW UP APPOINTMENT; EITHER CONTACT YOUR PRIMARY CARE DOCTOR, THE PHYSICIAN WHOSE NAME AND NUMBER YOU WERE GIVEN, OR RETURN TO THE ED IMMEDIATELY. Scripts Hydrocodone/Acetaminophen (Hydrocodone-Acetamin 5-325 mg) 1 Each Tablet 1 EACH PO Q6HRS for flank pain for 3 Days, #12 TAB 0 Refills Prov: LAXMI REESE APRN 08/12/20 Problem Qualifiers LAXMI REESE APRN Aug 12, 2020 14:32 ELOY ROSEN DO Aug 13, 2020 06:48
== END 2020-08-12 14:37 | disposition home or self-care (01) ==
LOC: ER 10:32
DX: N20.0 Calculus of kidney (principal); Z88.0 Allergy status to penicillin
CPT/HCPCS: 36415; 80048; 81001; 85025; 96361; 96374; 96375; 99284; J1885; J3010; J7030

== ENCOUNTER 2021-01-09 18:19 | Emergency (ER) | payer OTHER ==
[~2021-01-09] VITALS: Ht 175.3 cm; Wt 85.0 kg
[~2021-01-09 18:19] MED LIST changes: +HYDR-2759 PO
--- NOTE | 2021-01-09 18:48 | PHYS DOC ---
Past History Past Medical History: Arthritis, Kidney Stones (LAXMI REESE APRN) Past Surgical History: No Surgical History Additional Past Surgical Histo: BILAT FASCIATOMY LEGS (LAXMI REESE APRN) Alcohol Use: None (LAXMI REESE APRN) General Adult EDM: Chief Complaint: MULTIPLE COMPLAINTS HPI: HPI: Patient is a 30-year-old male who presents to the emergency department for multiple complaints including generalized headache, fever, body aches, sore throat, nonproductive cough, yellow nasal drainage and congestion that started this am. Patient reports that his temperature at home was 101.3. He is afebrile in the emergency department today. Patient denies any chest pain, shortness of breath, sick exposures, nausea, vomiting, abdominal pain, urinary symptoms. (LAXMI REESE APRN) Review of Systems: Review of Systems: 14 body systems of the review of systems have been reviewed. See HPI for pertinent positive and negative responses, otherwise all other systems are negative, nonpertinent or noncontributory (LAXMI REESE APRN) Allergies: Allergies: Allergies Coded Allergies Type Severity Reaction Last Updated Verified Penicillins Allergy Intermediate 08/01/20 Yes oseltamivir Allergy Intermediate 08/01/20 Yes (LAXMI REESE APRN) Physical Exam: PE: Constitutional: Well developed, well nourished, no acute distress, non-toxic appearance. [] HENT: Normocephalic, atraumatic, bilateral external ears normal, oropharynx moist, no tonsillar enlargement or exudate, uvula midline, no trismus, erythematous oropharynx, no oral exudates, nose normal. [] Eyes: PERRL, EOMI, conjunctiva normal, no discharge. [] Neck: Normal range of motion, no stridor Cardiovascular:Heart rate regular rhythm, no murmur [] Lungs & Thorax: Bilateral breath sounds clear to auscultation [] Abdomen: Bowel sounds normal, soft, no tenderness, no masses, no pulsatile masses. [] Skin: Warm, dry, no erythema, no rash. [] Back: Normal range of motion Extremities: No tenderness, no cyanosis, no clubbing, ROM intact, no edema. [] Neurologic: Alert and oriented X 3, normal motor function, normal sensory function, no focal deficits noted. [] Psychologic: Affect normal, judgement normal, mood normal. [] (LAXMI REESE APRN) Current Patient Data: Labs: Laboratory Tests Test 01/09/21 18:40 01/09/21 19:00 01/09/21 19:11 01/09/21 20:07 Influenza Type A (Rapid) Negative Influenza Type B (Rapid) Negative SARS-CoV-2 Antigen (Rapid) Negative White Blood Count 12.7 x10^3/uL Red Blood Count 5.78 x10^6/uL Hemoglobin 16.2 g/dL Hematocrit 48.7 % Mean Corpuscular Volume 84 fL Mean Corpuscular Hemoglobin 28 pg Mean Corpuscular Hemoglobin Concent 33 g/dL Red Cell Distribution Width 13.6 % Platelet Count 144 x10^3/uL Neutrophils (%) (Auto) 84 % Lymphocytes (%) (Auto) 9 % Monocytes (%) (Auto) 6 % Eosinophils (%) (Auto) 1 % Basophils (%) (Auto) 1 % Neutrophils # (Auto) 10.7 x10^3uL Lymphocytes # (Auto) 1.1 x10^3/uL Monocytes # (Auto) 0.8 x10^3/uL Eosinophils # (Auto) 0.1 x10^3/uL Basophils # (Auto) 0.1 x10^3/uL Sodium Level 142 mmol/L Potassium Level 4.0 mmol/L Chloride Level 102 mmol/L Carbon Dioxide Level 30 mmol/L Anion Gap 10 Blood Urea Nitrogen 12 mg/dL Creatinine 1.4 mg/dL Estimated GFR (Cockcroft-Gault) 58.7 BUN/Creatinine Ratio 9 Glucose Level 100 mg/dL Calcium Level 9.7 mg/dL Total Bilirubin 0.5 mg/dL Aspartate Amino Transf (AST/SGOT) 17 U/L Alanine Aminotransferase (ALT/SGPT) 25 U/L Alkaline Phosphatase 91 U/L Total Protein 7.8 g/dL Albumin 4.2 g/dL Albumin/Globulin Ratio 1.2 Group A Streptococcus Rapid Negative Urine Collection Type Unknown Urine Color Yellow Urine Clarity Clear Urine pH 7.0 Urine Specific [place] 1.020 Urine Protein Neg Urine Glucose (UA) Neg mg/dL Urine Ketones (Stick) Neg mg/dL Urine Blood Neg Urine Nitrite Neg Urine Bilirubin Neg Urine Urobilinogen Dipstick 0.2 mg/dL Urine Leukocyte Esterase Neg Urine RBC 0 /HPF Urine WBC Rare /HPF Urine Squamous Epithelial Cells Occ /LPF Urine Bacteria 0 /HPF Current Medications Medications (Trade) Dose Ordered Sig/Toby Route PRN Reason Start Time Stop Time Status Last Admin Dose Admin Sodium Chloride 1,000 ml @ 1,000 mls/hr 1X ONCE IV 01/09/21 19:00 01/09/21 19:59 DC 01/09/21 19:10 (LAXMI REESE APRN) EKG: EKG: EKG performed by ER staff at 1823 shows sinus rhythm with a rate of 92, QTc 433, no STEMI read by Dr. Tavarez [] (LAXMI REESE APRN) Radiology/Procedures: Radiology/Procedures: []PROCEDURE: PORTABLE CHEST 1V XR CHEST 1V 01/09/2021 7:12 PM INDICATION: Cough, tachycardia COMPARISON: None available TECHNIQUE: Portable frontal view of the chest is provided. FINDINGS: The cardiomediastinal silhouette is within normal limits. Lungs are clear. There are no significant pleural effusions. There is no pulmonary vascular congestion. No pneumothorax. No suspicious osseous abnormality. IMPRESSION: There is no acute cardiopulmonary process. Electronically signed by: Sony Castro MD (01/09/2021 7:40 PM) [facility] DICTATED AND SIGNED BY: SONY CASTRO MD DATE: 01/09/211939 CC: LAXMI REESE APRN; PCP,NO ~MTH0 0 (LAXMI REESE APRN) Heart Score: C/O Chest Pain: N/A Risk Factors: Risk Factors: DM, Current or recent (<one month) smoker, HTN, HLP, family history of CAD, obesity. Risk Scores: Score 0 - 3: 2.5% MACE over next 6 weeks - Discharge Home Score 4 - 6: 20.3% MACE over next 6 weeks - Admit for Clinical Observation Score 7 - 10: 72.7% MACE over next 6 weeks - Early Invasive Strategies (LAXMI REESE APRN) Course & Med Decision Making: Course & Med Decision Making Pertinent Labs and Imaging studies reviewed. (See chart for details) Patient presents to the emergency department for multiple complaints such as headache, fever, body aches, sore throat, yellow nasal drainage and a nonproductive cough. Patient was afebrile in the ER today. He was not hypoxic. His heart rate was mildly elevated. Patient was tested for COVID-19, influenza and strep. Lab work was also performed and a urinalysis was obtained. Patient received a chest x-ray to rule out pneumonia. Rapid strep test was negative. CXR negative. Patients heart rate has improved following fluids. Patient's rapid strep, influenza and Covid were all negative. Covid PCR is pending in the lab and patient be notified of those results when they become available in approximately 2 days. Mild leukocytosis noted. CMP is unremarkable. Urinalysis negative. Patient's vital signs continue to be stable. Patient advised to take Tylenol and ibuprofen for his pain, he was prescribed medication for his cough. Advised to use warm salt water gargles for his sore throat. Advised to stay hydrated. I discussed with patient all f indings and diagnostic testing as well as the need to follow-up with PCP for further evaluation and treatment or return to the ER if any new or worsening symptoms. Strict return precautions were also discussed at length. Patient voiced understanding and agreement with the plan. Patient is hemodynamically stable at the time of disposition. (LAXMI REESE APRN) Course & Med Decision Making Did not see or evaluate patient. Did not discuss patient with DIVISION ROAD SUPERVISOR. Agree with DIVISION ROAD SUPERVISOR's work-up and disposition per note. (REEMA TAVAREZ MD) Dragon Disclaimer: Viraon Disclaimer: This electronic medical record was generated, in whole or in part, using a voice recognition dictation system. (LAXMI REESE APRN) Departure Departure: Impression: Primary Impression: Person under investigation for COVID-19 Disposition: HOME / SELF CARE / HOMELESS Condition: GOOD Referrals: PCP,NO (PCP) Patient Instructions: Cough, Adult Additional Instructions: You were seen in the emergency department today for fever, headache, body aches, nonproductive cough and a sore throat. Your rapid Covid, influenza and strep testing was negative. Your chest x-ray did not show a pneumonia or any other acute findings. Your blood work was unremarkable. We did send out a Covid PCR and you'll be notified of those results when they become available in approximately 2 days. Please self isolate until you receive these results. Treatment for your symptoms is symptomatic as you most likely have a viral illness. For your headaches and fevers take ibuprofen and Tylenol. For your sore throat you can do warm salt water gargles. For your nasal congestion you can use Mucinex. For your cough you're being discharged home with cough medication. Please use this as directed. Scripts Benzonatate (BENZONATATE) 200 Mg Capsule 1 CAP PO PRN TID PRN for cough for 7 Days, #21 CAP 0 Refills Prov: LAXMI REESE APRN 01/09/21 LAXMI REESE APRN Jan 09, 2021 18:48 REEMA TAVAREZ MD Jan 09, 2021 21:01
[2021-01-09] MEDS ORDERED: IV NORMAL SALINE 1,000ML 1,000 ML IV ONE (19:00)
--- NOTE | 2021-01-09 19:42 | RAD ---
XR CHEST 1V 01/09/2021 7:12 PM INDICATION: Cough, tachycardia COMPARISON: None available TECHNIQUE: Portable frontal view of the chest is provided. FINDINGS: The cardiomediastinal silhouette is within normal limits. Lungs are clear. There are no significant pleural effusions. There is no pulmonary vascular congestion. No pneumothora x. No suspicious osseous abnormality. IMPRESSION: There is no acute cardiopulmonary process. Electronically signed by: Rupali Liao MD (01/09/2021 7:40 PM) [facility]
[2021-01-09 19:44] LABS: BASO # 0.1 x10^3/uL (0.0-0.2); BASO % 1 % (0-3); EOS # 0.1 x10^3/uL (0.0-0.7); EOS % 1 % (0-3); HEMATOCRIT 48.7 % (39.0-53.0); HEMOGLOBIN 16.2 g/dL (13.0-17.5); LYMPH # 1.1 x10^3/uL (1.0-4.8); LYMPH % 9 % (24-48); MEAN CORPUSCULAR HEMOGLOBIN 28 pg (25-35); MEAN CORPUSCULAR HGB CONC 33 g/dL (31-37); MEAN CORPUSCULAR VOLUME 84 fL (79-100); MONO # 0.8 x10^3/uL (0.0-1.1); MONO % 6 % (0-9); NEUT # 10.7 x10^3uL (1.8-7.7); NEUT % 84 % (31-73); PLATELET COUNT 144 x10^3/uL (140-400); RED BLOOD COUNT 5.78 x10^6/uL (4.30-5.70); RED CELL DISTRIBUTION WIDTH 13.6 % (11.5-14.5); WHITE BLOOD COUNT 12.7 x10^3/uL (4.0-11.0)
[2021-01-09 20:00] LABS: CALCIUM 9.7 mg/dL (8.5-10.1); CREATININE 1.4 mg/dL (0.7-1.3); GFR 58.7
[2021-01-09 20:06] LABS: ALBUMIN 4.2 g/dL (3.4-5.0); ALBUMIN/GLOBULIN RATIO 1.2 (1.0-1.7); TOTAL BILIRUBIN 0.5 mg/dL (0.2-1.0); TOTAL PROTEIN 7.8 g/dL (6.4-8.2)
[2021-01-09 20:13] LABS: INFLUENZA A PATIENT NEGATIVE (NEGATIVE); INFLUENZA B PATIENT NEGATIVE (NEGATIVE)
[2021-01-09] MEDS ORDERED: BENZ200C47 PO (20:23)
[2021-01-09 20:45] LABS: BACTERIA,URINE 0 /HPF (0-FEW); BILIRUBIN,URINE NEG (NEG); CLARITY,URINE CLEAR; COLOR,URINE YELLOW; GLUCOSE,URINE NEG (NEG); NITRITE,URINE NEG (NEG); RBC,URINE 0 /HPF (0-2); SQUAMOUS EPITHELIAL CELL,UR OCC /LPF; UROBILINOGEN,URINE 0.2 mg/dL (0.2 mg/dL); WBC,URINE RARE /HPF (0-4)
[2021-01-09 20:55] VITALS: BP 126/72
--- NOTE | 2021-01-09 22:59 | EKG ---
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
== END 2021-01-09 21:00 | disposition home or self-care (01) ==
LOC: ER 18:19
DX: R51.9 Headache, unspecified (principal); J02.9 Acute pharyngitis, unspecified; M19.90 Unspecified osteoarthritis, unspecified site; Z20.822 Contact with and (suspected) exposure to COVID-19; Z87.442 Personal history of urinary calculi; Z88.0 Allergy status to penicillin; Z88.8 Allergy status to other drugs, medicaments and biological substances
CPT/HCPCS: 71045; 80053; 81001; 85025; 87070; 87426; 87804; 87880; 93005; 96360; 99285; C9803; J7030; U0003